=== PATIENT | male | born 1990 | race Two or more races ===

== ENCOUNTER 2017-01-07 14:06 | Emergency (ER) | payer MEDICAID ==
[~2017-01-07] VITALS: Ht 172.7 cm; Wt 96.0 kg
[2017-01-07 19:22] VITALS: BP 115/71
== END 2017-01-07 19:33 | disposition home or self-care (01) ==
LOC: ER 15:47
DX: R51 Headache (principal); F12.90 Cannabis use, unspecified, uncomplicated
CPT/HCPCS: 70450; 99284